=== PATIENT | male | born 1980 | race Caucasian/White ===

== ENCOUNTER 2021-12-28 14:51 | Emergency (ER) | payer OTHER, SELFPAY ==
[2021-12-28 15:07] VITALS: BP 129/83; PULSE 98; RESP 18; TEMP 36.6; O2SAT 98; BMI 29.3
[2021-12-28 15:25] VITALS: BP 127/81; PULSE 91; RESP 16; O2SAT 98
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
== END 2021-12-28 17:32 | disposition home or self-care (01) ==
PROVIDERS: Emergency Provider Emergency Medicine
DX: S16.1XXA Strain of muscle, fascia and tendon at neck level, initial encounter (principal); V43.52XA Car driver injured in collision with other type car in traffic accident, initial encounter
CPT/HCPCS: 72125; 72128; 99284; 99291

== ENCOUNTER 2022-06-16 14:27 | Emergency (ER) | payer BC, SELFPAY ==
[2022-06-16 14:35] VITALS: BP 133/88; PULSE 120; RESP 22; TEMP 35.9; O2SAT 97; BMI 28.6
--- NOTE | 2022-06-16 15:18 | XR_ITS ---
Patient: CARLOS A KC Facility:?[facility] Patient ID:?[id number] Site Patient [id number]:?[id number]. Site :?[id number] Study:?XRay-Abdomen UPRIGHT & SUPINE-06/16/2022 3:40:02 PM Ordering Physician:DORON Final Report: Indication: .ABD FULLNESS, GAS, CONSTIPATION Technique: Abdomen 3 view. Comparison: None. Findings/Impression: Central abdominal opacity causes peripheral deviation bowel loops. This is indeterminate and recommend further evaluation with dedicated CT of the abdomen and pelvis. Non-obstructive bowel gas pattern. No free air. No abnormal abdominal calcifications. Hyper attenuating focus overlies the rectal vault and left lashaun abdomen, likely reflecting ingested tablet. Osseous structures are unremarkable for age. Dictated by Bo Lechuga MD @ 06/16/2022 4:12:58 PM Signed by:?Bo Lechuga MD @06/16/2022 4:12:58 PM (Electronic Signature)
[2022-06-16 15:47] VITALS: BP 136/90; PULSE 116; RESP 16; TEMP 36.2; O2SAT 96
[2022-06-16 16:04] LABS: Basophils Absolute Auto 0.01 K/uL (0.00-0.30); Basophils Percent Auto 0.1 % (0.0-3.0); Eosinophils Absolute Auto 0.03 K/uL (0.00-0.50); Eosinophils Percent Auto 0.4 % (0.0-7.0); Hemoglobin* 15.3 gm/dL (13.5-17.5); Immature Granulocytes Abs Auto 0.01 K/uL (0.00-0.30); Immature Granulocytes Pct Auto 0.1 %; Lymphocytes Percent Auto 6.5 % (20-44); Mean Corpuscular HGB Conc 35 gm/dL (32-36); Mean Corpuscular Hemoglobin 30 pg (26-34); Mean Corpuscular Volume 85 fL (80-100); Monocytes Percent Auto 4.4 % (0.0-11.0); Neutrophils Percent Auto 88.5 % (42.0-72.0); Platelet Count* 238 K/uL (140-440); Red Blood Count 5.19 m/uL (4.30-5.90); White Blood Count* 7.23 K/uL (4.50-11.00)
--- NOTE | 2022-06-16 16:29 | ED_ITS ---
HPI - Abdominal Pain General Chief Complaint: Abdominal Pain Stated Complaint: Stomach feels like it's going to explode Time Seen by Provider: 06/16/22 14:33 History of Present Illness HPI narrative: 41-year-old man presenting to the emergency department with complaint of ?I feel like my stomach is going to explode?. Apparently ate [employer] last night, ate a lot, and shortly after that started to have increasing abdominal discomfort and distention. Has struggled with this all night. Has not had a bowel movement since the day prior and would not consider himself constipated. He has not been vomiting isn't really feeling nauseated. Feels like he needs to belch. He has been doing that but it does not change much of his symptoms. Has passed a small amount of flatus. Admittedly is little bit better now than he was before arrival. He has not had a fever. No particular exposures noted. He does note that his temperature was 99 earlier. No rashes noted. Does not describe any allergies but does say that he had shrimp as part of the meal. He is wondering whether not is having reaction to food. He again has not had any diarrhea or vomiting. He has struggled with constipation in the past. He had thought about taking some MiraLax and then thought well maybe he should just get it checked out. Notes himself to be extremely anxious in locale such as this and particularly about needles. He would fully anticipate passing out if we needed to place a needle. Seems okay with a butterfly draw. He notes a history of GERD and did take Xanax on the way in. Related Data Home Medications Medication Instructions Recorded Confirmed alprazolam 0.5 mg tablet 0.5 mg PO Q6-12H PRN 12/28/21 12/28/21 omeprazole 20 mg tablet,delayed 20 mg PO DAILY 12/28/21 12/28/21 release venlafaxine 75 mg capsule,extended 75 mg PO DAILY 12/28/21 12/28/21 release 24 hr Allergies Allergy/AdvReac Type Severity Reaction Status Date / Time No Known Drug Allergies Allergy Verified 12/28/21 15:04 Review of Systems Status of ROS Reports: 10 or more systems reviewed and unremarkable except as noted in History and below PFSH PFSH Social History Smoking Status: Never smoker Do you use any of these nicotine containing products: Smokeless Tobacco Second hand tobacco smoke exposure: No How often do you have a drink containing alcohol: never AUDIT-C Alcohol total score: 0 Non-prescribed substance use: denies use service: No Exam Narrative: Exam Narrative: Pleasant. NAD. Easily conversant. Breathing easily. Skin is warm and dry. No extremity edema. He is well perfused. Skin with good turgor without rash. Oropharynx is moist not erythematous. Cranial nerves 2-12 look to be intact. Neck is supple. There is no stridor. Lungs are clear. Heart is tachycardic with a regular rhythm. Abdomen with normal active bowel sounds is full. Soft. Not particularly tender anywhere. Mildly uncomfortable over entire abdomen to palpation. At one point I thought perhaps a little more uncomfortable in the right lower abdomen. Const: Vital Signs, click to edit/add: Vital Signs - 24 hr 06/16/22 14:35 06/16/22 15:47 06/16/22 18:11 Temperature 96.6 F L 97.1 F L 97.1 F L Pulse Rate [Right Pulse Oximeter] 120 H 116 H 86 Respiratory Rate 22 16 16 Blood Pressure [Ri t Upper Arm] 133/88 136/90 H 127/79 Pulse Oximetry 97 96 97 Oxygen Delivery Me thod Room Air Room Air Room Air Documenting provider has reviewed patient's vital signs: yes Course Vital Signs Vital signs: Initial Vital Signs Temperature 96.6 F L 06/16/22 14:35 Temperature Source Temporal Artery Scan 06/16/22 14:35 Pulse Rate 120 H 06/16/22 14:35 Respiratory Rate 22 06/16/22 14:35 Blood Pressure 133/88 06/16/22 14:35 Blood Pressure Mean 103 06/16/22 14:35 Pulse Oximetry 97 06/16/22 14:35 Oxygen Delivery Method 06/16/22 14:35 Vital Signs Temperature 96.6 F L 06/16/22 14:35 Pulse Rate 120 H 06/16/22 14:35 Respiratory Rate 22 06/16/22 14:35 Blood Pressure 133/88 06/16/22 14:35 Pulse Oximetry 97 06/16/22 14:35 Oxygen Delivery Method 06/16/22 14:35 Temperature 97.1 F L 06/16/22 18:11 Pulse Rate 86 06/16/22 18:11 Respiratory Rate 16 06/16/22 18:11 Blood Pressure 127/79 06/16/22 18:11 Pulse Oximetry 97 06/16/22 18:11 Oxygen Delivery Method 06/16/22 18:11 MDM - Abdominal Pain MDM Narrative Medical decision making narrative: Take noted tachycardia. He does not appear to be terribly uncomfortable. I think with diffuseness of his abdominal discomfort would evaluate stool pattern and look for red flags in labs. He is okay with a lab butterfly draw. I said that we could hold on IV. This of course might be needed if marked white count elevation headed toward CT. Tachycardia though concerning seems inconsistent with physical presentation otherwise. Unclear if this represents abdominal process or anxiety. Possible that simply having some intolerance/reaction to food ingestion yesterday. Other abdominal process? Does not seem to be obstructed. Abdominal x-ray with nonspecific bowel pattern per my read. There are 2 opacities that look like pill ingestion. these are consistent with pills that he has taken prior. Sounds like extended release venlafaxine and omeprazole. White count normal. CRP elevated. He has been passing flatus. Now noting cramping discomfort. Ordered for some hyoscyamine. He wanted something for gas ordered for simethicone but held that given pending CT. Radiology over-read of abdominal x-ray though with concern for central abdominal opacity with peripheral deviation of bowel loops recommending CT abdomen pelvis. Return to discuss this with Mr. Britton IV will be placed. ordered for normal saline IV and abdomen and pelvis CT contrasted. At this time over-read of imaging is pending. I have looked at this imaging, it looks like there is mild edema of the small bowel. I do not see much leave inflammatory changes. Again over-read pending. Will be handing this patient off at change of shift. Lab Data Attestation: I reviewed the patient's lab results. Labs: Lab Results 06/16/22 06/16/22 Range/Units 15:53 15:53 WBC 7.23 (4.50-11.00) K/uL RBC 5.19 (4.30-5.90) m/uL Hgb 15.3 (13.5-17.5) gm/dL Hct 44.0 (37.0-53.0) % MCV 85 (80-100) fL MCH 30 (26-34) pg MCHC 35 (32-36) gm/dL RDW Coeff of Olu 13.0 (11.5-15.5) % Plt Count 238 (140-440) K/uL Neut % (Auto) 88.5 H (42.0-72.0) % Lymph % (Auto) 6.5 L (20-44) % Crowley % (Auto) 4.4 (0.0-11.0) % Eos % (Auto) 0.4 (0.0-7.0) % Baso % (Auto) 0.1 (0.0-3.0) % Neut # (Auto) 6.40 (1.7-7.0) K/uL Lymph # (Auto) 0.50 L (0.90-2.90) K/uL Crowley # (Auto) 0.30 (0.00-0.90) K/UL Eos # (Auto) 0.03 (0.00-0.50) K/uL Baso # (Auto) 0.01 (0.00-0.30) K/uL Sodium 137 (135-149) mmol/L Potassium 4.1 (3.6-5.1) mmol/L Chloride 106 (96-114) mmol/L Carbon Dioxide 23 (20-32) mmol/L BUN 21 (5-24) mg/dL Creatinine 0.8 (0.5-1.5) mg/dL Estimated Creat Clear 130.68 Estimated GFR 113 ml/min Glucose 95 (60-115) mg/dL Calcium 8.9 (8.4-10.6) mg/dL Total Bilirubin 0.9 (0.1-1.5) mg/dL Direct Bilirubin 0.1 (0.0-0.5) mg/dL AST 28 (12-35) U/L ALT 34 (4-50) U/L Alkaline Phosphatase 64 (40-150) U/L C-Reactive Protein 2.2 H (0.5-1.0) mg/dL Total Protein 7.6 (6.0-8.3) g/dL Albumin 4.5 (3.3-5.0) g/dL Lipase 46 (23-300) U/L Discharge Plan Discharge Prescriptions: No Action venlafaxine 75 mg capsule,extended release 24hr 75 mg PO DAILY Label Comments: TAKE 1 CAPSULE (75 MG) BY MOUTH ONCE DAILY WITH A MEAL. omeprazole 20 mg tablet,delayed release (DR/EC) 20 mg PO DAILY Label Comments: TAKE 1 TABLET (20 MG) BY MOUTH ONCE DAILY BEFORE A MEAL. alprazolam 0.5 mg tablet 0.5 mg PO Q6-12H PRN Label Comments: TAKE 1 TABLET BY MOUTH EVERY 6 HOURS NEEDED Follow Up/Referrals: Provider,Not a Local [Primary Care Provider] -
[2022-06-16 16:41] LABS: Chloride* 106 mmol/L (96-114)
[2022-06-16 16:42] LABS: Albumin* 4.5 g/dL (3.3-5.0); Potassium* 4.1 mmol/L (3.6-5.1); Sodium* 137 mmol/L (135-149)
[2022-06-16 16:44] LABS: Creatinine* 0.8 mg/dL (0.5-1.5); Est. Creatinine Clearance* 130.68; Estimated Glomerular Filt Rate 113 ml/min
[2022-06-16 16:45] LABS: Alanine Aminotransferase* 34 U/L (4-50); Alkaline Phosphatase* 64 U/L (40-150); Aspartate Amino Transferase* 28 U/L (12-35); Bilirubin Direct* 0.1 mg/dL (0.0-0.5); Bilirubin Total* 0.9 mg/dL (0.1-1.5); Blood Urea Nitrogen* 21 mg/dL (5-24); Calcium* 8.9 mg/dL (8.4-10.6); Carbon Dioxide* 23 mmol/L (20-32); Glucose* 95 mg/dL (60-115); Total Protein* 7.6 g/dL (6.0-8.3)
[2022-06-16 16:48] LABS: C Reactive Protein* 2.2 mg/dL (0.5-1.0)
--- NOTE | 2022-06-16 16:57 | CRLHL7_ITS ---
For Patients: As a result of the Century Cures Act, medical imaging exams and procedure reports are released immediately into your electronic medical record. You may view this report before your referring provider. If you have questions, please contact your health care provider. INDICATION: Abdominal discomfort, bloating. Possible mass. TECHNIQUE: CT abdomen and pelvis acquired with 100 mL Isovue 370 contrast. COMPARISON: Abdomen radiograph earlier same day dated 06/16/2022. FINDINGS: Lower chest: Motion artifact. No focal consolidation. Liver: No suspicious focal hepatic lesion. Gallbladder and bile ducts: Unremarkable. Pancreas: Unremarkable. Spleen: Unremarkable. Splenule is noted. Adrenal glands: Unremarkable. Kidneys: Kidneys enhance symmetrically, without hydronephrosis. Retroperitoneum: No lymphadenopathy. Bowel and mesentery: Bowel is not obstructed. Normal appendix. No significant ascites. Ovoid radiodensity in the ileum, likely reflective of a tablet/medication. No abnormal mesenteric mass. No pneumoperitoneum. Bladder: Unremarkable for degree of distension. Reproductive organs: No prostatomegaly. Pelvic lymph nodes: No lymphadenopathy. Vessels: Unremarkable. Abdominal wall: No acute abdominal wall abnormality. Bones: No suspicious/aggressive focal osseous lesion. IMPRESSION: Bowel is not obstructed. Ovoid radiodensity in the ileum, likely reflective of a tablet/medication. No abnormal mesenteric mass. No acute intra-abdominal abnormality identified. Please note that all CT scans at this facility use dose modulation, iterative reconstruction, and/or weight-based dosing when appropriate to reduce radiation dose to as low as reasonably achievable. Dictated by Felix Foreman MD @ 06/16/2022 6:34:35 PM (Electronically Signed)
[2022-06-16] MEDS: HYOSCYAMINE SULFATE 0.125 MG TAB 0.25 MG SUBLINGUAL (17:13)
[2022-06-16] MEDS: LORazepam 2 MG/ML inj 1 MG IM (17:27)
[2022-06-16 17:36] LABS: Lipase* 46 U/L (23-300)
[2022-06-16] MEDS: 0.9 % SODIUM CHLORIDE 1000 ml 1,000 ML IV (18:10)
[2022-06-16 18:11] VITALS: BP 127/79; PULSE 86; RESP 16; TEMP 36.2; O2SAT 97
[2022-06-16 18:21] LABS: Appearance Urine Clear (Clear); Bilirubin Urine Negative (Negative); Blood Urine Negative (Negative); Color Urine Yellow (Yellow); Glucose Urine Negative (Negative); Ketones Urine Negative (Negative); Leukocyte Esterase Urine Negative (Negative); Nitrite Urine Negative (Negative); Protein Urine Negative (Negative); Specific Gravity Urine 1.015 (1.000-1.030); Urobilinogen Urine 0.2 (0.2-1.0); pH Urine 6.5 (5.0-8.5)
[2022-06-16 19:14] VITALS: BP 127/80; PULSE 70; RESP 18; O2SAT 100
[2022-06-16 19:19] LABS: RBC Urine 0-2 (0-2); WBC Urine 0-2 (0-5)
[2022-06-16 23:34] LABS: Slide Review Reflex No
== END 2022-06-16 19:15 | disposition home or self-care (01) ==
PROVIDERS: Emergency Provider Family Medicine
DX: R14.0 Abdominal distension (gaseous) (principal)
CPT/HCPCS: 36415; 74019; 74177; 80048; 80076; 81001; 83690; 85025; 86140; 96372; 99284; A9270; J2060; J7030; Q9967

== ENCOUNTER 2022-08-16 13:24 | Outpatient (CLI) | payer BC, SELFPAY ==
[2022-08-16 17:42] VITALS: BP 153/100; PULSE 110
== END 2022-08-16 13:25 | disposition home or self-care (01) ==
LOC: STRESS 13:25
PROVIDERS: Visit Provider Family Medicine
DX: I47.20 Ventricular tachycardia, unspecified (principal)
CPT/HCPCS: 93016; 93325; 93351

== ENCOUNTER 2024-10-30 15:48 | Emergency (ER) | payer BC, SELFPAY ==
--- OUTSIDE RECORDS SUMMARY | 2024-10-30 15:50 | XMS_ITS | Clinical Summary ---
Author Organization [facility] Address [address] [place] [id number] Care Team Providers Care Fuel Cell Binder Name Role Phone [facility] Primary Care Provider Bonnie Dennis MD Unavailable [phone] Allergies No known active allergies Medications omeprazole 20 mg tabletIndicatio ns:Chronic GERD Take 1 Tablet (20 mg) by mouth once daily before a meal. 30 Tablet 2 Active venlafaxine 75 mg cp24 Extended-Releas e capsuleIndicati ons:Generalized anxiety disorder Take 1 Capsule (75 mg) by mouth once daily with a meal. 30 Capsule 2 5 Active venlafaxine (Effexor XR) 150 mg Extended-Releas e capsuleIndicati ons:Generalized anxiety disorder Take 1 Capsule (150 mg) by mouth once daily with a meal. 30 Capsule 3 5 Active clonazePAM 0.5 mg tabletIndicatio ns:Panic disorder 0.5 - 1 tab PO BID PRN as needed for anxiety 45 Tablet 1 5 Active venlafaxine (Effexor XR) 37.5 mg Extended-Releas e capsuleIndicati ons:Generalized anxiety disorder Take 1 Capsule (37.5 mg) by mouth once daily with a meal. With 75 mg for total of 112.5 mg daily 30 Capsule 2 5 Active ALPRAZolam (XANAX) 0.5 mg tabletIndicatio ns:Panic attacks Take 1 to 2 tabs up to twice daily as needed for anxiety 30 Tablet 5 5 10/09/19 25 Discontinu ed(*Med complete/R egimen complete/L evel of care change) venlafaxine (Effexor XR) 37.5 mg Extended-Releas e capsuleIndicati ons:Generalized anxiety disorder Take 1 Capsule (37.5 mg) by mouth once daily with a meal. 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 05/04/2022 Regular astigmatism of both eyes 05/05/2016 05/04/2022 Unspecified constipation 09/06/201411/2021 Panic attacks 02/18/2010 06/05/2012 Adjustment disorder with anxious mood 02/18/2010 06/05/2012 Anxiety state, unspecified 08/11/2006 0 02/18/2010 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/22 Encounters Date Type Department Care Team Description 10/28/2024 12:00 PM CDT Telemedicine [facility] [address] [facility] [address] [place] [address] Aida Iyer, WEBMETHODS ARCHITECT Individual Therapy; Psychotherapy; Depression; Anxiety; Telehealth 10/25/2024 Telephone [facility] [address] [place] [phone] Hank Mcdowell MD Refill Request (VENLAFAXINE HCL ER 75 MG CAP) 10/23/2024 Travel 10/23/2024 Telephone [facility] [address] [place] [address] Hank Mcdowell MD Questions 10/15/2024 9:00 AM CDT Telemedicine [facility] [address] [facility] [address] [place] [address] [facility] Individual Therapy; Telehealth; Psychotherapy; Anxiety 10/10/2024 Travel 10/08/2024 2:15 PM CDT Telemedicine [facility] [address] [place] [phone] Hank Mcdowell MD Follow Up 10/07/2024 Travel 09/30/2024 1:45 PM CDT Telemedicine [facility] [address] [place] [phone] Hank Mcdowell MD Follow Up; Medication Management; Telehealth 09/30/2024 9:00 AM CDT Telemedicine [facility] [address] [facility] [address] [place] [address] [facility] Mental Health Intake; Telehealth; MH Trmt Plan 09/30/2024 Travel 09/30/2024 Telephone [facility] [address] [place] [phone] Hank Mcdowell MD Appointment 09/29/2024 Travel 09/09/2024 2:00 PM CDT Telemedicine [address] [facility] [place] [address] [facility] Mental Health Consultants Visit 09/09/2024 Travel 09/02/2024 8:00 AM CDT Office Visit [facility] [address] [place] [address] David Santos, OD Eye Exam (CEE) 09/02/2024 Travel 08/28/2024 Travel from Last 3 Months Immunizations Immunization Administration Dates Next Due Influenza A (H1N1), Inactivated 06/04/2012 Influenza, IIV4 03/05/2020 MMR 04/23/1999 Tdap 09/21/2011 Family History Medical History Relation Name Comments Good Health Father Heart Disease Maternal Grandfather M I in 60's Skin cancer Mother unsure type Genetic Other mother selma coffman unnel~father A\T\W~sibs A\T\W~PGM breast CA~PGF aneurysm~MGF CAD~no DM, HTN Heart Disease Paternal Grandfather M i in 70's Cancer-colon No Family History Relation Name Status Comments Father Alive Maternal Grandfather Mother Alive Other Paternal Grandfather Paternal Grandmother Social History Tobacco Use Types Packs/Day Years Used Date Smoking Tobacco: Former Cigarettes 1 6 0 05/22/2000 - 05/22/2006 Smokeless Tobacco: Former Chew Tobacco Cessation:Counseling Given: Not Answered Alcohol Use Standard Drinks/Week Comments Yes 0 (1 standard drink = 0.6 oz pur e alcohol) rare PHQ-2 Answer Date Recorded PHQ-2 TOTAL SCORE 2 10/27/2024 Social Connections Answer Date Recorded Do you often feel lonely or isolated from those around you? 0 03/17/2024 Financial Resource Strain Answer Date R ecorded Difficulty of Paying Living Expenses 3 03/17/2024 Difficulty of Paying Living Expenses Not on file 03/17/2024 Food Insecurity Answer Date Recorded Do you worry your food will run out before you are able to buy more? 1 03/17/2024 Transportation Needs Answer Date Record ed Does lack of transportation keep you from medica l appointments? 1 03/17/2024 Does lack of transportation keep you from work, meetings or getting things that you need? 1 03/17/2024 Housing Stability Answer Date Recorded What is your housing situation today? 1 03/17/2024 Utilities Answer Date Recorded Do you have trouble paying f or utilities (for example, heat, electricity, water, phone)? 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 [address] [address] 11/15/2024 11:20 AM CDT Office Visit [facility] [address] [facility], [place] [id number] [place] [address] [place] [address] Health Maintenance Due Date Last Done Comments HIV for age 15-65 1993 Hepatitis C screening for ag e 18-79 1996 Hepatitis B series for 19+ ( 1 of 3 - 19+ 3-dose series) 1997 Pneumococcal series for age 6-49 (1 of 2 - PCV) 1997 Tetanus booster 09/20/2021 09/21/2011 Lipids for age 45-75 2023 08/11/2014, 08/12/19 15 COVID-19 vaccine series ( season) 2024 Influenza Vaccine (Season Ended) 2025 03/05/20 20 BMI (ht and wt on same day) for age 18+ 03/18/2025 03/18/2024, 09/13/2022, 05/04/2022, Additional history exists Fecal testing non-DNA (FIT,FOBT,iFOBT) for age 45-75 03/24/2025 03/24/2024 Depression screening for age 12+ 10/27/2025 10/27/2024, 09/30/2024, 09/30/2024, Additional history exists Tdap Completed 09/21/2011 Procedures Procedure Name Priority Date/Time Associated Diagnosis Comments OCCULT BLOOD IFOBT STOOL Routine 03/24/2024 12:00 AM CDT Screening for colon cancer LIPID PANEL W REFLEX MEASURED LDL Routine 08/11/2014 4:36 PM CDT Screening, lipid from Last 3 Months or Most Recently Relevant to Health Maintenance Results * OCCULT BLOOD IFOBT STOOL (03/24/2024 12:00 AM CDT) Pathologist [facility] FECAL GLOBIN BY IMMUNOCHEMISTRY SEE NOTE [facility] Comment: FECAL GLOBIN BY IMMUNOCHEMISTRY Micro Number: [id number] Test Status: Final Specimen Source: Insure (tm) fobt test card Specimen Quality: Adequate Fecal Globin: Not Detected Stool STOOL SPECIMEN / Unknown 03/24/2024 03/27/2024 6:40 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 [facility] Final Result [facility] [address] [place] [address], [facility] [address] [place] [address] * (ABNORMAL) LIPID PANEL W REFLEX MEASURED LDL (08/11/2014 4:36 PM CDT) CHOLESTEROL,TOTAL 239(H) 100 - 199 mg/dL 08/11/2014 10:07 PM CDT [facility]-NORM TRAL LABORATORY TRIGLYCERIDES 484(H) <150 mg/dL 08/11/2014 10:07 PM CDT [facility]-NORM TRAL LABOR[facility] HDL CHOLESTEROL 35(L) >40 mg/dL 5 10:07 PM CDT [facility] NON-HDL CHOLESTEROL 204(H) <145 mg/dl 08/11/2014 10:07 PM CDT [facility] CHOL/HDL RATIO 6.83(H) <4.50 08/11/2014 10:07 PM CDT [facility] LDL CHOLESTEROL 5 10:07 PM CDT [facility] Comment:Invalid LDL when Tri g >400, reflexed to measured LDL PATIENT STATUS FASTING 08/11/2014 10:07 PM CDT [facility] Blood specimen (specimen) BLOOD SPECIMEN / Unknown Venipuncture / Unknown 08/11/2014 4:36 PM CDT 08/11/2014 4:36 PM CDT us Debra Liz MD CHEMISTRY Final Resul t [facility] [address] [place] [address], from Last 3 Months or Most Recently Relevant to Health Maintenance Insurance [place] [facility] Care Teams Fuel Cell Binder Relationship Specialty Start Date End Date [facility] PCP - General 12/09/21 Bonnie Cornelius MD [address] [facility] [address] [place] [address] Consulting Physician Cardiology - Electrophysiology 08/18/22
--- OUTSIDE RECORDS SUMMARY | 2024-10-30 15:50 | XMS_ITS | Clinical Summary ---
Author Organization [facility] Address [address], [place] [address] Care Team Providers Care Cocktail Waitress Name Role Phone Needs Pcp, Assignment Primary Care Provider Source Comments You are receiving this document as you are listed as the primary care provider,follow-up provider, or the patient has been referred to you for consultation.This is in compliance with the Medicare and[facility] EHR Incentive Program,which states Providers who transition their patient to another setting of careor provider of care or refers their patient to another provider of care shouldprovide summary care record for each transition of care or referral. [facility] Allergies No known active allergies Medications venlafaxine (aka EFFEXOR) tablet Take 37.5 mg by mouth 2 times daily. 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 Gender Identity Not on file Sexual Orientation Not on file Last Filed Vital Signs Vital Sign Reading Time Taken Comments Blood Pressure 114/63 09/28/2021 4:57 PM CDT Pulse 57 09/28/2021 4:57 PM CDT Temperature 36.4 C (97.5 F) 09/28/2021 3:34 PM CDT Respiratory Rate 20 09/28/2021 4:57 PM CDT Oxygen Saturation 100% 09/28/2021 4:57 PM CDT Inhaled Oxygen Concentration - - Weight - - Height - - Body Mass Index - - Plan of Treatment Health Maintenance Due Date Last Done Comments Colon Cancer Screening Plan Due 1978 Hep C Screening (Preventive Services) 1978 HIV Screening (Preventive Services) 1994 Adult Preventive Visit 1996 HepB Vaccine (1) 1997 Cholesterol 2013 DTaP/Tdap/Td Vaccine (2 - Tdap) 09/20/2021 09/21/2011 COVID-19 Vaccine (1 - 2023-2 5 season) 2024 Influenza Vaccine (Season Ended) 2025 03/05/2020, 01/29/2020 Zoster/Shingles Vaccine (1 o f 2) 2028 HepA Vaccine Aged Out No longer eligi ble based on patient's age to complete this topic Hib Vaccine Aged Out No longer eligi ble based on patient's age to complete this topic IPV (Polio) Vaccine Aged Out No longe r eligible based on patient's age to complete this topic MCV4 Vaccine Aged Out No longer eligi ble based on patient's age to complete this topic Meningococcal B Vaccine Aged Out No l onger eligible based on patient's age to complete this topic Pneumococcal Vaccine Aged Out No long er eligible based on patient's age to complete this topic Insurance F[facility] INSURED [facility] Care Teams Cocktail Waitress Relationship Specialty Start Date End Date Needs Pcp, [place] [address] PCP - General 03/27/15
[2024-10-30 15:58] VITALS: BP 174/97; PULSE 67; RESP 18; TEMP 36.1; O2SAT 98; BMI 27.9
--- NOTE | 2024-10-30 17:29 | ED_ITS ---
[facility] - General Adult General Date Seen: 10/30/24 Chief complaint: Syncope/Fainted Stated complaint: Syncopal Time Seen by Provider: 10/30/24 16:12 History of Present Illness [facility] narrative: This is a 44-year-old male presenting to the ER today after he had a syncopal event at work. History is obtained in part from the patient and is supplemented by his who is attentively at his side. He reports that he has a long history of fainting spells dating back to when he was about 16 years old. He says he has had at least 8 or 10 episodes of syncope. He says that he has previously had at a ?extensive? workup through his middleware consultant. He apparently had normal stress test, echocardiogram, cloth doffer. It sounds like he was diagnosed with vasovagal syncope. Because symptoms were so persistent for him and he had so many episodes of fainting, they were actually considering placement of a pacemaker to prevent him from fainting any more. However, the pacemaker implantation procedure was not approved by his insurance so had never occurred. His last episode of syncope was probably 2 or 3 years ago. He notes that they are always triggered by stressful episodes, site of blood, or phlebotomy. He recalls 1 specific episode of syncope that occurred when his daughter was recovering from surgery. He also notes a long history of anxiety, panic and generalized anxiety disorder. He has been trying to start working on this recently and he is now seeing a therapist and has a psychiatrist and is on medications including Lexapro , clonazepam. He has been taking his meds lately. He still feels like his eye is anxiety is not well controlled but he is taking steps to get better. He is motivated and is taking long-term outlook with regard to his anxiety. He does not have any other major long-term medical problems. He has had previous left shoulder dislocations. Today he was at work when some of his colleagues were talking about lab draw and diabetes checks and hyperglycemia when he began to feel the antecedent symptoms of dizziness, sweatiness, and presyncope. He knew that he was getting anxious and thought he was going to faint. He decided to abruptly walk away because he thought that if he could ?get out of that situation?, he might be able to avoid fainting. As he was walking way he blacked out. All he knows is that he woke up on the floor. His co-worker saw him fainted. His co-worker said that it looked like he fell gently. He did not have any seizure activity. He did suffer an abrasion to his right zygoma. 911 was called because of the fainting episode. He was evaluated by paramedics and placed into a C-collar prior to arrival. He has no other recent illnesses. No fever. No cough. No trouble breathing. No palpitations. No recent chest pains. No trouble breathing. No nausea vomiting or diarrhea. No black or bloody stools. No abdominal pain. No swelling in his legs. Related Data Home Medications ?Medication ?Instructions ?Recorded ?Confirmed alprazolam 0.5 mg tablet 0.5 mg PO Q6-12H PRN 2 10/30/24 omeprazole 20 mg tablet,delayed 20 mg PO DAILY 2 10/30/24 release venlafaxine 75 mg capsule,extended 75 mg PO DAILY 02/1010/30/24 release 24 hr Previous Rx's ?Medication ?Instructions ?Recorded hyoscyamine sulfate 0.125 mg tablet 0.25 mg (2 x 0.125 mg) PO QID PRN 06/16/22 For abdominal cramping #20 tabs Allergies Allergy/AdvReac Type Severity Reaction Status Date / Time No Known Drug Allergies Allergy Verified 10/30/24 15:57 [facility] Social History Smoking Status: Never smoker Do you use any of these nicotine containing products: None Second hand tobacco smoke exposure: No How often do you have a drink containing alcohol: never How often do you have six or more drinks on one occasion: Never AUDIT-C Alcohol total score: 0 Non-prescribed substance use: denies use service: No Exam Narrative: Exam Narrative: Constitutional: Appears well-developed and well-nourished. Alert. Conversant. Non toxic. HENT: Head: No depressed skull fracture, Raccoon Eyes, Berman's sign, or hemotympanum. Face normal. TMs normal. He does have a superficial so abrasion on his right lateral zygoma without any underlying bony tenderness or crepitus. No swelling. TMJ is normal. No trismus. Nose: Nose normal. Mouth/Throat: Oral mucosa is clear and moist. no trismus. Pharynx normal. Tonsils symmetric. No tonsillar enlargement, erythema, or exudate. Eyes: Conjunctivae normal. EOM normal. Pupils equal, round, and reactive to light. No scleral icterus. Neck: Arrives in a C-collar placed by EMS. He says that he has mild soreness in the lateral left cervical paraspinous muscles. No other pain. He has no distracting injury. He has normal mental status. No signs of intoxication. He has no bony midline tenderness. I was able to take off the C-collar and he has Normal active range of motion. Neck supple. No tracheal deviation present. Cardiovascular: Normal rate, regular rhythm. No gallop. No friction rub. No murmur heard. Symmetric radial and PT artery pulses Pulmonary/Chest: Effort normal. No stridor. No respiratory distress. No wheezes. No rales. No rhonchi . No tenderness. Abdominal: Soft. Bowel sounds normal. No distension. No mass. No tenderness. No rebound. No guarding. Musculoskeletal: RUE: Normal range of motion. No tenderness. No deformity LUE: Normal range of motion. No tenderness. No deformity RLE: Normal range of motion. No edema. No tenderness. No deformity LLE: Normal range of motion. No edema. No tenderness. No deformity Neurological: Alert and oriented to person, place, and time. Normal strength. CN II-VII intact. No sensory deficit. GCS eye subscore is 4. GCS verbal subscore is 5. GCS motor subscore is 6. Normal coordination Skin: Skin is warm and dry. No rash noted. No pallor. Normal capillary refill. Psychiatric: Normal mood. Normal affect. Endorses lot of anxiety about multiple things in his life but in particular he gets anxious about potential fainting. He is working with a therapist and has recently started on medications for that. He feels like he is doing pretty well his anxiety but he needs to improved. He is worried about taking clonazepam because he is worried about the potential for addiction. He also notes that when he takes it, not every day, he sometimes gets a little bit of blurry vision. Const: Vital Signs, click to edit/add: Vital Signs - 24 hr 10/30/24 15:58 Temperature 97 F L Pulse Rate [Pulse Oximeter] 67 Respiratory Rate 18 Blood Pressure [Ri ght Upper Arm] 174/97 H Pulse Oximetry 98 Oxygen Delivery Me thod Room Air Course Vital Signs Vital signs: Initial Vital Signs Temperature 97 F L 10/30/24 15:58 Temperature Source Temporal Artery Scan 10/30/24 15:58 Pulse Rate 67 10/30/24 15:58 Respiratory Rate 18 10/30/24 15:58 Blood Pressure 174/97 H 10/30/24 15:58 Blood Pressure Mean 122 H 10/30/24 15:58 Blood Pressure Position Semi-Fowlers 10/30/24 15:58 Pulse Oximetry 98 10/30/24 15:58 Oxygen Delivery Method Room Air 10/30/24 15:58 Vital Signs Temperature 97 F L 10/30/24 15:58 Pulse Rate 67 10/30/24 15:58 Respiratory Rate 18 10/30/24 15:58 Blood Pressure 174/97 H 10/30/24 15:58 Pulse Oximetry 98 10/30/24 15:58 Oxygen Delivery Method Room Air 10/30/24 15:58 Temperature 97 F L 10/30/24 15:58 Pulse Rate 67 10/30/24 15:58 Respiratory Rate 18 10/30/24 15:58 Blood Pressure 174/97 H 10/30/24 15:58 Pulse Oximetry 98 10/30/24 15:58 Oxygen Delivery Method Room Air 10/30/24 15:58 Medical Decision Making MDM Narrative Medical decision making narrative: This patient presents for evaluation of a syncopal event. A broad differential was considered. History provided suggests a benign cause of syncope. He has a long history of at least 8 or 10 previous episodes of similar syncope that are thought to be vasovagal in nature. No murmurs . Initial ECG shows normal sinus rhythm and no dysrhythmogenic abnormality such as WPW, prolonged QT, Brugada syndrome, and no ischemia. No symptoms/findings concerning for cardiac ischemia or ACS . No headache or other neurologic symptoms to suggest subarachnoid , stroke . No reported seizure-like activity or postictal phase. cyanide pot hardener while the patient here in the ER showed no dysrhythmia or ectopy. A broad differential diagnosis was considered including SVT, Atrial fibrillation, ventricular arrhythmia, thyroid disease, acute electrolyte abnormality, drugs/medications, medication side effect, anemia, heart disease, PE, among others. The workup and exam here in ED shows low risk for dangerous cause of the patient's syncope, and no risks factors to warrant admission. The patient has a significant anxiety a needle phobia and does not want labs. At this point based on his provided history of no recent illnesses and a long history of vasovagal syncope I think it is reasonable to omit lab testing for electrolytes, hemoglobin thyroid. He is not having any symptoms to suggest ACS or PE or subarachnoid. Clinical judgement suggests that supportive outpatient management is indicated. Recommend follow up with primary care provider. He does not currently have PCP but his has been working on him to get him to get 1. He is motivated to get 1 today. Also recommend follow-up with his middleware consultant. Has previously seen Cardiology through [facility] and the [employer] system. In terms of injuries from the syncopal episode he has a small abrasion on his right cheek but no signs of right facial bone fracture. He does not have any headache, blurry vision, nausea or vomiting or other symptoms of concussion or traumatic brain injury. At this point I think it is safe to omit head CT. He did arrive in a C-collar placed by EMS but I am able to clear him by nexus criteria so will hold off on C-spine imaging. The remainder of his head to toe trauma exam is negative. Questions answered and return precautions given ECG Data Attestation: I personally reviewed and interpreted this ECG as follows: Interpretation: Sinus bradycardia Rate: 56 ME: 162 QRS axis: Normal axis. No pathologic Q-waves. ST segment/T wave: No ST segment elevation or depression. QTc: 389 Discharge Plan Discharge Clinical Impression: Vasovagal syncope, Abrasion of face, Anxiety Patient Disposition: Home, Self-Care Condition: Stable Instructions: Syncope (DC), Abrasion (ED), Anxiety (ED) Additional Instructions: As we discussed, right now we suspect the or fainting spell was triggered by vasovagal syncope. It is very important for you to start receiving care from a primary care provider. You can call any primary office you like and it may be best to call a primary care provider who is ?in network?? with your insurance. If you would like a primary care provider here in [place] you can call [phone]. If you have any more trouble such as chest pain, palpitations, more dizzy spells or fainting, headache, vomiting, confusion, or any problems, please return to the emergency room right away. Please continue on your current medications until you see your new primary care provider. Also please follow-up with your psychiatrist and her therapist or ongoing care. Prescriptions: No Action venlafaxine 75 mg capsule,extended release 24hr 75 mg PO DAILY Patient Comments: TAKE 1 CAPSULE (75 MG) BY MOUTH ONCE DAILY WITH A MEAL. omeprazole 20 mg tablet,delayed release (DR/EC) 20 mg PO DAILY Patient Comments: TAKE 1 TABLET (20 MG) BY MOUTH ONCE DAILY BEFORE A MEAL. alprazolam 0.5 mg tablet 0.5 mg PO Q6-12H PRN Patient Comments: TAKE 1 TABLET BY MOUTH EVERY 6 HOURS NEEDED hyoscyamine sulfate 0.125 mg tablet 0.25 mg PO QID PRN (Reason: For abdominal cramping) Qty: 20 0RF Follow Up/Referrals: Provider,Not a Local [Primary Care Provider, Family Practice] Stand Alone Forms: Work/School [facility], [facility] Inst[facility]
[2024-10-30 17:59] VITALS: BP 150/98; PULSE 79; RESP 16; O2SAT 98
== END 2024-10-30 18:00 | disposition home or self-care (01) ==
LOC: ED 17:39
PROVIDERS: Emergency Provider Emergency Medicine
DX: R55 Syncope and collapse (principal); S00.81XA Abrasion of other part of head, initial encounter; F41.9 Anxiety disorder, unspecified
CPT/HCPCS: 93005; 99283; 99284